=== PATIENT | male | born 1995 | race Caucasian/White ===

== ENCOUNTER 2017-06-19 01:05 | Emergency (ER) | payer BC ==
[2017-06-19] MEDS ORDERED: NS 0.9% 1000 ML* 1,000 ML IV ONE (01:28)
[2017-06-19] MEDS ORDERED: Tetan/Diph/Pertus SYR(Tdap)* 0.5 ML SYR(BOOSTRIX) use SYR IM ONE (01:28)
[2017-06-19 01:46] LABS: Hematocrit 47 % (42-52); Hemoglobin 15.4 g/dl (14.0-18.0); Mean Corpuscular HGB Conc 33 g/dl (31-36); Mean Corpuscular Hemoglobin 30 pg (27-31); Mean Corpuscular Volume 91 fL (80-94); Mean Platelet Volume 9 um3 (7.4-10.4); Red Blood Count 5.14 10^6/ul (4.0-5.4); Red Cell Distribution Width 14 % (10.5-15); White Blood Count 15.4 10^3/ul (3.5-10.8)
[2017-06-19 02:01] LABS: Albumin 4.8 g/dL (3.2-5.2); BUN/Creatinine Ratio 9.2 (8-20); Calcium 9.7 mg/dL (8.6-10.3); EGFR African American 108.8 (>60); EGFR Non-African American 84.6 (>60); Globulin 2.6 g/dL (2-4); Potassium 4.5 mmol/L (3.5-5.0); Total Bilirubin 0.4 mg/dL (0.2-1.0); Total Protein 7.4 g/dL (6.4-8.9)
[2017-06-19 02:02] LABS: Troponin I 0.01 ng/mL (<0.04)
[2017-06-19] MEDS ORDERED: Iohexol 300* (CONTRAST) 10 ML SDV IV ONE (02:32)
--- NOTE | 2017-06-19 03:13 | ED ---
Dedra Montoya Thomas, scribed for Nahum Bales on 06/19/17 at 0143 . Complex/Multi-Sys Presentation - HPI Summary HPI Summary: Pt is a 21 y/o M presenting to the ED c/o back, neck, and upper body pain s/p falling 20 feet off of a room. The patient was drinking and using marijuana. Pt denies pelvic pain and blood out of mouth. Patient is previously healthy. He is accompanied by his mother. - History Of Current Complaint Chief Complaint: EDTraumaMultiple Time Seen by Provider: 06/19/17 01:28 Hx Obtained From: Patient, Family/Wall Taper - mother Onset/Duration: Sudden Onset - post fall, Still Present Timing: Constant Location: Pain At: - Back pain, neck pain, upper body pain Aggravating Factor(s): Palpation Alleviating Factor(s): None Associated Signs And Symptoms: Positive: Back Pain, Recent Trauma - fell 20 ft off a roof, Other - Upper body pain, neck pain; Negative: Pelvic pain. Negative : Abdominal Pain - Allergies/Home Medications Allergies/Adverse Reactions: Allergies Allergy/AdvReac Type Severity Reaction Status Date / Time No Known Allergies Allergy Verified 04/29/14 19:05 PMH/Surg Hx/FS Hx/Imm Hx Previously Healthy: Yes Opthamlomology History: Denies: Hx Legally Blind EENT History: Denies: Hx Deafness Infectious Disease History: No Infectious Disease History: Denies: Traveled Outside the [place] in Last 30 Days - Family History Known Family History: Positive: Other - Pt denies family history - Social History Lives: With Family Alcohol Use: Occasionally Alcohol Amount: 2 shots at 1400 today Substance Use Type: Reports: None Hx Tobacco Use: No Smoking Status (MU): Never Smoked Tobacco Review of Systems Negative: Fever Negative: Abdominal Pain Positive: Other - Upper body and neck pain, back pain. Negative: Pelvic pain All Other Systems Reviewed And Are Negative: Yes Physical Exam - Summary Physical Exam Summary: Appearance: Well appearing, no pain distress Skin: warm, dry, reflects adequate perfusion, abrasions on left hand. Head/face: Abrasions on face Eyes: EOMI, ALEXYS ENT: normal Neck: supple, mild neck tenderness Respiratory: CTA, breath sounds present Cardiovascular: RRR, pulses symmetrical Abdomen: soft, no tenderness. Benign abdomen. Bowel: present Musculoskeletal: strength/ROM intact, mild chest tenderness. Neuro: normal, sensory motor intact, A&Ox3 Triage Information Reviewed: Yes Vital Signs On Initial Exam: Initial Vitals Temp Pulse Resp BP Pulse Ox 96.9 F 88 14 114/47 97 06/19/17 01:13 06/19/17 01:13 06/19/17 01:13 06/19/17 01:13 06/19/17 01:13 Vital Signs Reviewed: Yes Diagnostics - Vital Signs Vital Signs Temp Pulse Resp BP Pulse Ox 06/19/17 01:13 96.9 F 88 14 114/47 97 - Laboratory Lab Results: Lab Results 06/19/17 06/19/17 06/19/17 Range/Units 01:36 01:36 01:36 WBC 15.4 H (3.5-10.8) 10^3/ul RBC 5.14 (4.0-5.4) 10^6/ul Hgb 15.4 (14.0-18.0) g/dl Hct 47 (42-52) % MCV 91 (80-94) fL MCH 30 (27-31) pg MCHC 33 (31-36) g/dl RDW 14 (10.5-15) % Plt Count 185 (150-450) 10^3/ul MPV 9 (7.4-10.4) um3 Neut % (Auto) 83.2 H (38-83) % Lymph % (Auto) 12.8 L (25-47) % Coal % (Auto) 3.2 (1-9) % Eos % (Auto) 0.4 (0-6) % Baso % (Auto) 0.4 (0-2) % Absolute Neuts (auto) 12.8 H (1.5-7.7) 10^3/ul Absolute Lymphs (auto) 2.0 (1.0-4.8) 10^3/ul Absolute Monos (auto) 0.5 (0-0.8) 10^3/ul Absolute Eos (auto) 0.1 (0-0.6) 10^3/ul Absolute Basos (auto) 0.1 (0-0.2) 10^3/ul Absolute Nucleated RBC 0 10^3/ul Nucleated RBC % 0 INR (Anticoag Therapy) 0.94 (0.89-1.11) Sodium 137 (133-145) mmol/L Potassium 4.5 (3.5-5.0) mmol/L Chloride 101 (101-111) mmol/L Carbon Dioxide 28 (22-32) mmol/L Anion Gap 8 (2-11) mmol/L BUN 10 (6-24) mg/dL Creatinine 1.09 (0.67-1.17) mg/dL Est GFR ( Amer) 108.8 (>60) Est GFR (Non-Af Amer) 84.6 (>60) BUN/Creatinine Ratio 9.2 (8-20) Glucose 102 H (70-100) mg/dL Calcium 9.7 (8.6-10.3) mg/dL Total Bilirubin 0.40 (0.2-1.0) mg/dL AST 36 (13-39) U/L ALT 34 (7-52) U/L Alkaline Phosphatase 61 (34-104) U/L Troponin I 0.01 (<0.04) ng/mL Total Protein 7.4 (6.4-8.9) g/dL Albumin 4.8 (3.2-5.2) g/dL Globulin 2.6 (2-4) g/dL Albumin/Globulin Ratio 1.8 (1-3) Lipase 153 H (11.0-82.0) U/L Result Diagrams: 06/19/17 01:36 06/19/17 01:36 Lab Statement: Any lab studies that have been ordered have been reviewed, and results considered in the medical decision making process. - CT CT Brain CT Interpretation: No Acute Changes - Normal brain. No acute intracranial abnormality. No hemorrhage. Osseous structures are intact. CT Interpretation Completed By: Radiologist CT C-Spine CT Interpretation: No Acute Changes - Negative for cervical fracture or misallignment. ED physician has reviewed this report and agrees. CT Interpretation Completed By: Radiologist CT Chest/Abd/Pel CT Interpretation: No Acute Changes - Negative for thoracic/pulmonary injury. No pneumothorax or pseumomediastinum. No pulmonary infiltrates/contusions. No pleural effusions. Mediastinal structures and vessels are unremarkable. Thoracic cage is intact. Negative for abdominal pelvic visceral injury. Liver, gallbladder, spleen, pancreas, adrenal glands, kidneys urinary tract and urinary bladder are all intact. No acute abnormalitiy of bowel. No pneumoperitoneum or ascites. Osseos structures are intact. Left renal cyst. ED physician has reviewed this report and agrees. CT Interpretation Completed By: Radiologist Complex Multi-Symp Course/Dx - Diagnoses Differential Diagnoses/HQI/PQRI: Closed Cranial Trauma, Other - fall/neck pains/ fx lumbar spine Provider Diagnoses: Fall, Contusion of face, Head injury, Neck pain Discharge - Discharge Plan Condition: Stable Disposition: HOME Prescriptions: Ibuprofen TAB* [Motrin TAB* 600 MG] 600 mg PO Q8H PRN #20 tab MDD 3 PRN Reason: Pain Patient Education Materials: Head Injury (ED), Facial Contusion (ED), Neck Pain (ED) Referrals: Elio Pizarro [employer] [facility]NAGER [Primary Care Provider] - 5 Days Additional Instructions: PLEASE MAKE AN APPOINTMENT TO SEE YOUR PRIMARY CARE DOCTOR TO BE SEEN WITHIN 1 WEEK. PLEASE RETURN TO THE ED FOR ANY WORSENING OR CONCERNING SYMPTOMS. The documentation as recorded by the Dedra aguilar Thomas accurately reflects the service I personally performed and the decisions made by , Nahum Bales.
[2017-06-19 04:27] VITALS: BP 121/64
--- NOTE | 2017-06-19 07:52 | RAD ---
INDICATION: Fall from 20 feet facial abrasions. COMPARISON: There are no prior studies available for comparison. TECHNIQUE: Contiguous axial sections of the brain were obtained from the skull base to the vertex without contrast. FINDINGS: The ventricles, cisterns and sulci are within normal limits. No significant focal abnormality or mass effect is seen. There is no evidence for hemorrhage. No significant focal osseous abnormality is seen. The visualized portion of the paranasal sinuses and mastoid air cells appear clear. IMPRESSION: NO EVIDENCE FOR ACUTE INTRACRANIAL ABNORMALITY.
--- NOTE | 2017-06-19 08:19 | RAD ---
INDICATION: Trauma fell 20 feet. COMPARISON: Comparison is made with a prior CT of the abdomen and pelvis from December 20, [address] of the chest from August 06, 2009. TECHNIQUE: A CT scan of the chest, abdomen and pelvis was performed with intravenous and without oral contrast following intravenous injection of 100 ml of Omnipaque 300 nonionic contrast. Contiguous axial sections were obtained from the lung apices through the symphysis pubis. Images were reconstructed in the coronal and sagittal planes. FINDINGS: There is mild dependent bilateral lower lobe subsegmental atelectasis. There is no evidence for pulmonary contusion. No pneumothorax or pleural effusion is seen. There is soft tissue density in the anterior mediastinum most consistent with residual thymus tissue. No mediastinal hemorrhage is seen. No significant enlarged mediastinal or hilar lymph nodes are noted. The heart is within normal limits in size. No pericardial effusion is present. The thoracic aorta is normal in caliber and demonstrates homogeneous contrast opacification. The liver and spleen are normal in size. There is no evidence for contusion or focal abnormality. No calcified gallstones are seen. The pancreas appears to be within normal limits. The kidneys and adrenal glands are normal in size. There is no evidence for hydronephrosis. There is a 0.7 cm cyst in the upper pole of the left kidney. The aorta is normal in caliber and demonstrates homogeneous contrast opacification. There is no evidence for retroperitoneal hemorrhage. No enlarged retroperitoneal lymph nodes are seen. The stomach, small and large bowel appear nondistended. The appendix appears to be within normal limits. No free intraperitoneal air or fluid is seen. No significant focal osseous abnormality is seen. IMPRESSION: NO EVIDENCE FOR ACUTE FINDING.
--- NOTE | 2017-06-19 09:04 | RAD ---
INDICATION: Trauma, neck pain. COMPARISON: There are no prior studies available for comparison. TECHNIQUE: Contiguous axial sections were obtained from the skull base through the T2 vertebra. Images were reconstructed in the sagittal and coronal planes. FINDINGS: The vertebra are in normal alignment. No prevertebral soft tissue swelling is seen. There appears to be a hairline incomplete fracture involving the superior aspect of the C7 spinous process. This does not extend into the spinal canal. No other fractures are seen. Disc spaces appear maintained. There is no evidence for spinal canal or neural foraminal narrowing. The results of this exam were called to the emergency department charge nurse. IMPRESSION: THERE IS AN INCOMPLETE NONDISPLACED FRACTURE OF THE C7 SPINOUS PROCESS NOTED.
== END 2017-06-19 04:00 | disposition home or self-care (01) ==
LOC: ED 01:05
DX: S00.83XA Contusion of other part of head, initial encounter (principal); S09.90XA Unspecified injury of head, initial encounter; M54.2 Cervicalgia; S12.600A Unspecified displaced fracture of seventh cervical vertebra, initial encounter for closed fracture; W17.89XA Other fall from one level to another, initial encounter; Y92.9 Unspecified place or not applicable
CPT/HCPCS: 36415; 70450; 71260; 72125; 74177; 80053; 83690; 84484; 85025; 85610; 90715; 99284; Q9967